=== PATIENT | female | born 1990 | race African-American/Black ===

== ENCOUNTER 2019-11-07 11:52 | Emergency (ER) | payer OTHER ==
[~2019-11-07] VITALS: Ht 162.6 cm; Wt 68.0 kg
[2019-11-07 11:53] VITALS: BP 135/81
[2019-11-07] MEDS ORDERED: MECLIZINE HCL25 M1 PO (12:31)
[2019-11-07] MEDS ORDERED: SUDOGEST30 MG PO (12:31)
[2019-11-07] MEDS ORDERED: FLONASE 0.05%50 MCG NARES (12:31)
== END 2019-11-07 13:00 | disposition home or self-care (01) ==
LOC: ER 11:52
DX: H69.92 Unspecified Eustachian tube disorder, left ear (principal); R42 Dizziness and giddiness